=== PATIENT | female | born 1960 | race Caucasian/White ===

== ENCOUNTER 2017-09-24 12:58 | Day surgery (SDC) | payer OTHER ==
[~2017-09-24] VITALS: Ht 157.5 cm; Wt 80.6 kg
[~2017-09-24 12:58] MED LIST: AMBIEN 10MG10 MG PO; BENTYL 20MG20 MG/TAB PO; CALCIUM PO; COLACE 100100 MG/CAP PO; CYANOCOBAL1000 MCG/1 IM; EPIPEN 2-PAK1 MG/ML IM; FLEXERIL10 MG PO; IRON250 MG PO; LASIX 20MG TABL20 MG PO; LINZESS290CAP; LORTAB 5/500 501 TAB PO; NEXIUM 40MG40 MG PEG; TOPAMAX 100MG100 M1 PO; TOPAMAX100 MG PO; VITAMIN D1000 IU PO; VOLTAREN GEL 1%1 TU TP; ZOFRAN8 MG PO; [UNRECOGNIZED DRUG - OTHER] PO
[2017-09-24 13:12] VITALS: BP 144/68; PULSE 73; TEMP 97.4
[2017-09-24] MEDS ORDERED: NORCO 325 MG-7.1 TAB PO (13:30)
[2017-09-24] MEDS ORDERED: VITAMIN D31000 I1 PO (13:31)
[2017-09-24] MEDS ORDERED: XANAX 0.5MG0.5 MG PO (13:33)
[2017-09-24] MEDS ORDERED: CALCIUM CITRATE1 TA1 PO (13:33)
[2017-09-24] MEDS ORDERED: AMBIEN 10MG10 MG PO (13:34)
[2017-09-24] MEDS ORDERED: ZOFRAN 4MG T4 MG/TAB PO (13:34)
[2017-09-24] MEDS ORDERED: MIDRIN 325 MG-11 CAP PO (13:35)
[2017-09-24] MEDS ORDERED: [UNRECOGNIZED DRUG - OTHER] PO (13:36)
[2017-09-24] MEDS ORDERED: COLACE 100100 MG/CAP PO (13:36)
[2017-09-24] MEDS ORDERED: MIRALAX PA17 GM/Dose PO (13:37)
[2017-09-24] MEDS ORDERED: ZANAFLEX CAPSULE4 MG PO (13:38)
[2017-09-24] MEDS ORDERED: PRELIEF PO (13:40)
[2017-09-24] MEDS ORDERED: FLAX OIL1000 MG PO (13:40)
[2017-09-24] MEDS ORDERED: NATURAL E400 IU PO (13:41)
[2017-09-24] MEDS ORDERED: HCTZ12.5TAB PO (13:42)
[2017-09-24] MEDS ORDERED: VTAMINC250TA PO (13:42)
[2017-09-24] MEDS ORDERED: KLOR-CON M2020 MEQ PO (13:44)
[2017-09-24 17:16] VITALS: BP 110/53; PULSE 73; TEMP 97.6
== END 2017-09-24 17:53 | disposition home or self-care (01) ==
LOC: SDCO 12:58
DX: N39.41 Urge incontinence (principal); D64.9 Anemia, unspecified; G43.909 Migraine, unspecified, not intractable, without status migrainosus; Z90.49 Acquired absence of other specified parts of digestive tract; M19.90 Unspecified osteoarthritis, unspecified site; Z90.710 Acquired absence of both cervix and uterus; Z96.659 Presence of unspecified artificial knee joint; Z82.49 Family history of ischemic heart disease and other diseases of the circulatory system
CPT/HCPCS: C1767; C1778; C1787; C1894; J0690; J1885; J2250; J2405; J2704; J3010; J7120